=== PATIENT | female | born 1970 | race Caucasian/White ===

== ENCOUNTER 2022-07-30 14:51 | Outpatient (CLI) | payer OTHER, SELFPAY ==
--- NOTE | ~2022-07-30 | XR_ITS ---
EXAMINATION: XR cervical spine 4-5V DATE: 07/30/2022 15:24 INDICATION: Neck pain. TECHNIQUE: 5 views of cervical spine were obtained. COMPARISON: CT cervical spine 09/09/2009 FINDINGS: There is 5 degrees dextrocurvature of cervicothoracic spine. There is 2 mm retrolisthesis o f C5 on C6. Vertebral body heights are normal. There is mildly decreased disc height at C5-C6 and C6- C7. At C6-C7, there is severe right uncovertebral joint osteoarthritis. The facet joints are unremark able. There is mild central canal stenosis at C5-C6. No prevertebral soft tissue swelling. IMPRESSION: 1. Mild cervical spondylosis. Reviewed, dictated and finalized at location A. ITAL WELLNESS COORDINATOR
== END 2022-07-30 14:52 | disposition home or self-care (01) ==
PROVIDERS: PCP Family Medicine; Visit Provider Family Medicine
DX: M47.892 Other spondylosis, cervical region (principal)
CPT/HCPCS: 72050

== ENCOUNTER 2022-09-20 08:00 | Outpatient (RCR) | payer OTHER, SELFPAY ==
--- NOTE | 2022-08-23 09:15 | PTOPEVAL1 ---
Assessment and note entered by Tyrel Moon, PT Evaluation Information Assessment Status Evaluation Diagnosis Cervicalgia Onset beginning of May 2022 Subjective Information Victorina report she got a promotion last year and since then has been spending 10 hour days at a desk looking at her computer screen. She started with pain just in the back of her neck in the suboccipital region and has started going down to the L upper trap and into the arm. Pain is worst at the end of the day, driving, sleeping. She reports she does just get stuck working and will stay in the same position for long extended periods of time. Patient does use a heating pad and hot showers to help with the pain. Has attended 2 sessions of chiropractic treatment. Unable to take NSAID secondary to side effects from her bariatric surgery. Reported Pain Level Pain Score 0: Self Report Additional Pain Score Comments She has not been to work yet this morning Assessment PT Clinical Summary Victorina is a 52 year old female coming into the clinic with neck pain worst on the L side. She has reduced rotation and side bending to the L side along with a positive Spurling test in the L front quadrant. Patient needs to work on posture instructed to set an alarm on her phone to go off no later than every 45 minutes to improve poor work posture. Patient will benefit from skilled physical therapy to work on cervical range of motion and strength along with scapular strengthening and modalities and manual therapy for pain control and stretching respectively. Plan of Care Interventions Electrical Stimulation,Gait Training,Hot Pack/Cold Pack,Manual Therapy,Mechanical Traction,Paraffin Bath,Patient/Caregiver Education,Therapeutic Activities,Therapeutic Exercise,Ultrasound Other Interventions taping PT Services Indicated Yes Treatment Frequency and 1-2x/wk for 4 weeks Duration These treatments will address the objective and functional deficits as defined above. The patient will be advanced safely and appropriately in order for the patient to progress towards his/her prior level of function. Additional exercises will be introduced and as well as a comprehensive home exercise program upon discharge, if needed, ?to ensure carryover of functional gains achieved in the clinic. This treatment plan has been reviewed and agreement upon by the patient.
--- NOTE | 2022-09-14 11:27 | PCPTNOTE ---
Patient called & cancelled scheduled appointment this date due to not feeling well.
--- NOTE | 2022-09-20 17:20 | PTOPREEVAL ---
Assessment and note entered by Tyrel Moon, PT Evaluation Information Assessment Status Re-evaluation Diagnosis Cervicalgia Onset May 2022 Subjective Information Patient report she feels better for awhile after leaving therapy even last week not feeling pain for multiple days, but then her neck with start tightening up. States she is faithful with her HEP and does get up and move instead of staying all session sitting at her desk. Still going down her L shoulder. Clinical Summary Victorina is a 52 year old female coming into the clinic with neck pain radiating down the L arm. Patient has reported changing her sitting habits at work to improve posture. Has improvement of five degrees side bending and 10 degrees of rotation both to the L side. Patient still has the same pain and radiating symptoms. Recommend trying to get an injection to improve the L upper trap. Patient reports she got one for her knee and has done wonders. Continue therapy to work on muscle tightness until injections. These treatments will address the objective and functional deficits as defined above. The patient will be advanced safely and appropriately in order for the patient to progress towards his/her prior level of function. Additional exercises will be introduced and as well as a comprehensive home exercise program upon discharge, if needed, ?to ensure carryover of functional gains achieved in the clinic. This treatment plan has been reviewed and agreement upon by the patient.
--- NOTE | 2022-10-22 09:42 | PCPTNOTE ---
Admitting Provider: Attending Provider: Alex Langford MD Patient:Victorina Matson Date of :1970 Patient has not returned for any further treatments since 09/20/2022, therefore she will be discharged at this time. Patient?s initial visit was on 08/23/2022 08:00 and she had a total of ___6 visits with 1 cancelation The goals have been partially met. Thank you for referring this patient to [facility]. Please review, sign, date and return this discharge summary HE. I have been updated about the patient's current status and I agree with discharge from the above service at this time. Referring Physician Date
== END 2022-11-01 14:02 | disposition home or self-care (01) ==
LOC: ANHPT 08:00
PROVIDERS: PCP Family Medicine; Visit Provider Family Medicine
DX: M54.2 Cervicalgia (principal)
CPT/HCPCS: 97014; 97110; 97140; 97161; 97530; G0283

== ENCOUNTER 2022-11-09 08:01 | Outpatient (CLI) | payer OTHER, SELFPAY ==
--- NOTE | ~2022-11-09 | MR_ITS ---
MRI of the cervical spine Clinical History: Radiculopathy Technique: Axial T2-weighted and gradient images, and sagittal T1-weighted, T2-weighted, and STIR lawrence ges were acquired. Findings: There is minimal reversal of the normal cervical lordosis. No fracture or subluxation. Ther e are reactive marrow signal changes about the C5-C6 disc space due to mild underlying degenerative d isc disease. At C2-C3, there is no disc bulge or herniation. No spinal canal stenosis, cord compression, or neural foraminal narrowing. At C3-C4, there is no significant disc bulge or herniation. No spinal canal stenosis, cord compressio n, or neural foraminal narrowing. At C4-C5, there is no significant disc bulge or herniation. No spinal canal stenosis, cord compressio n, or neural foraminal narrowing. At C5-C6, there is minimal disc osteophyte complex. No garry spinal canal stenosis or cord compressio n. There is left neural foraminal narrowing. Right neural foramen preserved. At C6-C7, there is minimal disc osteophyte complex. No spinal canal stenosis, cord compression, or ne ural foraminal narrowing. No abnormal signal seen in the spinal cord. Paravertebral soft tissues are unremarkable. Impression: Mild left neural foraminal narrowing at C5-C6, related to minimal disc osteophyte complex. Additional minimal degenerative change at C6-C7. Reviewed, dictated and finalized at [facility]. Impression: Mild left neural foraminal narrowing at C5-C6, related to minimal disc osteophy te complex. Additional minimal degenerative change at C6-C7.
== END 2022-11-09 08:02 | disposition home or self-care (01) ==
LOC: ANHIMG 08:09
PROVIDERS: PCP Family Medicine
DX: M54.12 Radiculopathy, cervical region (principal)
CPT/HCPCS: 72141

== ENCOUNTER 2023-11-07 05:51 | Day surgery (SDC) | payer OTHER, SELFPAY ==
[2023-10-03 11:44] VITALS: BMI 30.7
[2023-11-07 06:26] VITALS: BP 129/90; PULSE 62; RESP 16; TEMP 36.5; O2SAT 100; BMI 29.7
[2023-11-07] MEDS: LACTATED RINGERS 1,000 ML 150 ML IV CONT (07:05)
--- NOTE | 2023-11-07 07:06 | PM.HPGS ---
History of Present Illness History of Present Illness Consent: Risks, benefits, and alternatives have been discussed and questions answered. Patient agrees to proceed with procedure. Chief complaint: Neoplasm Screening of Colon Narrative: Victorina Matson is a 53 year old female presents for screening colonoscopy. Patient reports that her current weight appetite and bowel movements are normal. Patient denies abdominal pain. She has had no bleeding. Family history is noncontributory. Review of Systems Review of Systems: All systems reviewed & are unremarkable except as noted in HPI and below PMFSH Past Medical History Medical History (Updated 05/02/23 @ 08:41 by Alex Langford MD) Acute neck pain (~07/16/22) X-ray of the cervical spine on 07/30/2022 with mild degenerative disc and arthritis worse at the right at C6-C7. Left cervical radiculitis. Acute non-recurrent maxillary sinusitis Adult BMI 36.0-36.9 kg/sq m Anemia Anxiety BMI 30.0-30.9,adult BMI 34.0-34.9,adult BMI 35.0-35.9,adult Breast cancer screening Cholecystectomy planned Chronic headaches Chronic nasal congestion Chronic nonallergic rhinitis Colon cancer screening COVID-19 (07/11/20) Depression Essential hypertension (~02/28/22) GERD (gastroesophageal reflux disease) History of narcotic addiction Insomnia Iron deficiency anemia following bariatric surgery hemoglobin 9.9, MCV 73, iron 18 with 4% saturation and ferritin of 5 on 10/26/2021. Obesity (BMI 30-39.9) Ovarian cyst Radiculitis of left cervical region MRI C-spine 11/09/2022 with left neuroforaminal narrowing at C5-C6 from osteophyte complex. Tobacco abuse patient quit smoking May,. Vitamin B12 deficiency (dietary) anemia Surgical History Surgical History History of gastric bypass (~2003) Family History Family History Mother Hypertension Heart disease Father Heart disease Hypertension Sibling Hypertension Social History Social History (Updated 08/01/22 @ 11:11 by Michelle Cash MA) Years smoked: 20 Smoking status: Former smoker Tobacco type: cigarettes Second hand tobacco smoke exposure: Yes Smoking end date: 05/22/22 Alcohol intake: current Drinks per week: 6 Substance use: never Substance use type: does not use Lack of Transportation: No Lack of Food: Never True Current Housing: I Have Housing Concerned About Future Housing: No Difficulty Paying Gas/Electric Bills: No Difficulty Paying for Meds: No Currently Unemployed: No Education: High School Diploma/GED Difficulty w/ Childcare or Family Care: No Living arrangements: with family Spiritual care concerns: No Meds Home Medications and Allergies Home Medications Medication Instructions Recorded Confirmed Type fluticasone propionate 50 1 spray intranasal BID #16 grams 04/25/21 11/07/23 Rx mcg/actuation nasal spray,suspension (Flonase Allergy Relief) cyanocobalamin (vitamin B-12) 1,000 mcg PO DAILY #90 tabs 08/07/22 11/07/23 Rx 1,000 mcg tablet ferrous sulfate 325 mg (65 mg 325 mg PO DAILY 10/17/22 11/07/23 History iron) tablet,delayed release bupropion HCl 300 mg 24 hr tablet, 300 mg PO QAM #30 tabs 04/10/23 11/07/23 Rx extended release (Wellbutrin XL) quetiapine 200 mg tablet (Seroquel) 200 mg PO QHS #30 tabs 07/23/23 11/07/23 Rx gabapentin 100 mg capsule 100 mg PO TID #90 caps 09/30/23 11/07/23 Rx tramadol 50 mg tablet 50 mg PO Q6H PRN pain #60 tabs 10/17/23 11/07/23 Rx Allergies Allergy/AdvReac Type Severity Reaction Status Date / Time meperidine Allergy Intermediate Hives Verified 11/07/23 06:17 Vital Signs Vital Signs - 24 hr 11/07/23 06:26 Temperature 97.7 F Pulse Rate 62 Respiratory Rate 16 Blood Pressure 129/90 Pulse Oximetry 100 Oxygen Delivery Room Air Exam Narrative:
--- NOTE | 2023-11-07 07:26 | WPDANESEPPF ---
Anes - Initial Pre Proc Eval Procedure: Operation Date: 11/07/23 07:30 Proposed Procedures p Screening Colonoscopy - Aravind Gamboa MD Date/Time: 11/07/23 07:26 Surgeon: Aravind Gamboa MD Pre Op Diagnosis: Neoplasm Screening of Colon Patient Data Age: 53 Gender: F Height: 1.6 m Weight: 76.1 kg Last Vital Signs Temp 36.5 C 11/07/23 06:26 Pulse 62 11/07/23 06:26 Resp 16 11/07/23 06:26 BP 129/90 11/07/23 06:26 Pulse Ox 100 11/07/23 06:26 O2 Del Method Room Air 11/07/23 06:26 Allergies Allergy/AdvReac Type Severity Reaction Status Date / Time meperidine Allergy Intermediate Hives Verified 11/07/23 06:17 Home Medications Medication Instructions Recorded Confirmed Type fluticasone propionate 50 1 spray intranasal BID #16 grams 04/25/21 11/07/23 Rx mcg/actuation nasal spray,suspension (Flonase Allergy Relief) cyanocobalamin (vitamin B-12) 1,000 mcg PO DAILY #90 tabs 08/07/22 11/07/23 Rx 1,000 mcg tablet ferrous sulfate 325 mg (65 mg 325 mg PO DAILY 10/17/22 11/07/23 History iron) tablet,delayed release bupropion HCl 300 mg 24 hr tablet, 300 mg PO QAM #30 tabs 04/10/23 11/07/23 Rx extended release (Wellbutrin XL) quetiapine 200 mg tablet (Seroquel) 200 mg PO QHS #30 tabs 07/23/23 11/07/23 Rx gabapentin 100 mg capsule 100 mg PO TID #90 caps 09/30/23 11/07/23 Rx tramadol 50 mg tablet 50 mg PO Q6H PRN pain #60 tabs 10/17/23 11/07/23 Rx Patient hx anesthesia problems: none Family hx anesthesia problems: none Results Review: All pre-operative results and documents have been reviewed as part of the pre-operative evaluation. PENDING SALE TO [facility] Past Medical History Medical History Acute neck pain (~07/16/22) X-ray of the cervical spine on 07/30/2022 with mild degenerative disc and arthritis worse at the right at C6-C7. Left cervical radiculitis. Acute non-recurrent maxillary sinusitis Adult BMI 36.0-36.9 kg/sq m Anemia Anxiety BMI 30.0-30.9,adult BMI 34.0-34.9,adult BMI 35.0-35.9,adult Breast cancer screening Cholecystectomy planned Chronic headaches Chronic nasal congestion Chronic nonallergic rhinitis Colon cancer screening COVID-19 (07/11/20) Depression Essential hypertension (~02/28/22) GERD (gastroesophageal reflux disease) History of narcotic addiction Insomnia Iron deficiency anemia following bariatric surgery hemoglobin 9.9, MCV 73, iron 18 with 4% saturation and ferritin of 5 on 10/26/2021. Obesity (BMI 30-39.9) Ovarian cyst Radiculitis of left cervical region MRI C-spine 11/09/2022 with left neuroforaminal narrowing at C5-C6 from osteophyte complex. Tobacco abuse patient quit smoking May,. Vitamin B12 deficiency (dietary) anemia Surgical History Surgical History History of gastric bypass (~2003) Family History Family History Mother Hypertension Heart disease Father Heart disease Hypertension Sibling Hypertension Social History Social History Years smoked: 20 Smoking status: Former smoker Tobacco type: cigarettes Second hand tobacco smoke exposure: Yes Smoking end date: 05/22/22 Alcohol intake: current Drinks per week: 6 Substance use: never Substance use type: does not use Lack of Transportation: No Lack of Food: Never True Current Housing: I Have Housing Concerned About Future Housing: No Difficulty Paying Gas/Electric Bills: No Difficulty Paying for Meds: No Currently Unemployed: No Education: High School Diploma/GED Difficulty w/ Childcare or Family Care: No Living arrangements: with family Spiritual care concerns: No Anes - Eval Final PreProcedure Day of Procedure 11/07/23 07:26 Patient weight: overweight Heart: regul
[2023-11-07 07:51] VITALS: BP 102/56; PULSE 64; RESP 14; O2SAT 100
[2023-11-07 08:01] VITALS: BP 108/60; PULSE 62; RESP 16; O2SAT 100
[2023-11-07 08:11] VITALS: BP 121/74; PULSE 57; RESP 16; O2SAT 100
--- NOTE | 2023-11-07 08:30 | WPDANESPN ---
Anes - Prog Note Post-Op Date/Time: 11/07/23 08:30 Cardiovascular status: normal Respiratory status: normal Airway patency: baseline Mental status: baseline Post-Op hydration status: normal Vital Signs: Last Vital Signs Temp 36.5 C 11/07/23 06:26 Pulse 57 L 11/07/23 08:11 Resp 16 11/07/23 08:11 BP 121/74 11/07/23 08:11 Pulse Ox 100 11/07/23 08:11 O2 Del Method Room Air 11/07/23 08:11 Pain Score (VAS): 0 I/O: Intake & Output 11/06/23 11/07/23 11/07/23 23:59 07:59 15:59 Intake Total 400 100 Balance 400 100 Patient Feedback: Patient satisfied with anesthetic care.
== END 2023-11-07 08:15 | disposition home or self-care (01) ==
PROVIDERS: PCP Family Medicine; Visit Provider Internal Medicine Gastroenterology
PROC: 0DJD8ZZ Inspection of Lower Intestinal Tract, Via Natural or Artificial Opening Endoscopic (ICD-10-PCS; CPT 45378; principal; 2023-11-07 07:30)
DX: Z12.11 Encounter for screening for malignant neoplasm of colon (principal); K64.8 Other hemorrhoids
CPT/HCPCS: 45378

== ENCOUNTER → 2023-12-18 14:14 | Outpatient (REF) | payer OTHER, SELFPAY | LOC: ANHLAB 14:14 | PROVIDERS: PCP Family Medicine; Visit Provider Plastic Surgery | DX: L72.0 Epidermal cyst (principal) | CPT/HCPCS: 88305 ==

== ENCOUNTER 2024-01-30 11:00 | Outpatient (CLI) | payer OTHER, SELFPAY ==
[2024-01-30 11:21] LABS: Basophils Absolute Auto 0.1 K/mm3 (0.0-0.1); Basophils Percent Auto 1.8 % (0.2-1.2); Eosinophils Absolute Auto 0.1 K/mm3 (0-0.3); Eosinophils Percent Auto 1.3 % (0-4.4); Hemoglobin 8.9 g/dL (12.0-15.0); Lymphocytes Absolute Auto 1.35 K/mm3 (0.9-3.2); Lymphocytes Percent Auto 29.5 % (18.3-44.2); Mean Corpuscular HGB Conc 29.7 g/dl (32-36); Mean Corpuscular Hemoglobin 20.2 pg (26-34); Mean Corpuscular Volume 68.2 fl (80-100); Mean Platelet Volume 8.7 fl (7.4-10.4); Monocytes Absolute Auto 0.5 K/mm3 (0.1-0.6); Monocytes Percent Auto 10.5 % (2.6-8.5); Neutrophils Absolute Auto 2.6 K/mm3 (1.3-6.7); Neutrophils Percent Auto 56.9 % (45.5-73.1); Platelet Count Result 311 k/mm3 (150-375); Red Cell Distribution Width 20.4 % (11.5-14.5); White Blood Count 4.6 K/mm3 (4.5-10.0)
[2024-01-30 11:29] LABS: Anisocytosis 1+; Hypochromasia 2+; Microcytosis 1+ (NORMAL); Platelet Estimate Adequate (Adequate); Schistocytes None Seen
[2024-01-30 13:49] LABS: Iron 20 ug/dL (37-170)
[2024-01-30 13:58] LABS: Alanine Aminotransferase 32 U/L (6-35); Albumin Level 4.6 g/dL (3.5-5.1); Alkaline Phosphatase 75 U/L (38-126); Anion Gap 10 mmol/L (4-12); Aspartate Amino Transferase 39 U/L (14-36); Bilirubin,Total 0.4 mg/dL (0.2-1.3); Blood Urea Nitrogen 13 mg/dL (7-17); Calcium 9.4 mg/dL (8.4-10.2); Carbon Dioxide 28 mmol/L (22-30); Chloride 100 mmol/L (98-107); Estimated Glomerular Filt Rate > 60; Glucose 77 mg/dL (65-110); Lactate Dehydrogenase 194 U/L (120-246); Potassium 4.4 mmol/L (3.4-5.0); Sodium 138 mmol/L (137-145)
[2024-01-30 14:06] LABS: Percent Iron Saturation 4 % (20-50)
[2024-01-30 14:25] LABS: Ferritin 4.67 ng/mL (11.1-264)
[2024-01-30 15:03] LABS: Folic Acid > 20.0 ng/mL (2.76->20); Vitamin B12 > 1000.0 pg/mL (239-931)
[2024-02-04 06:24] LABS: Methylmalonic Acid 137 nmol/L (55-335)
[2024-02-05 09:09] LABS: Soluble Transferrin Receptor 4.28 mg/L (0.76-1.76)
== END 2024-01-30 11:01 | disposition home or self-care (01) ==
LOC: ANHLAB 11:01
PROVIDERS: PCP Family Medicine; Visit Provider Nurse Practitioner Family
DX: D50.9 Iron deficiency anemia, unspecified (principal)
CPT/HCPCS: 36415; 80053; 82607; 82728; 82746; 83540; 83550; 83615; 83921; 84238; 85025

== ENCOUNTER 2024-05-29 08:14 | Outpatient (CLI) | payer OTHER, SELFPAY ==
--- NOTE | ~2024-05-29 | MM_ITS ---
EXAMINATION: MM screening maria m BI w coco HISTORY: Screening TECHNIQUE: Craniocaudal and mediolateral oblique 3-D tomosynthesis images were obtained and synthetic 2-D images were generated. CAD analysis was submitted and interpreted. COMPARISON: 04/22/2015 BREAST PARENCHYMAL COMPOSITION: Not dense: There are scattered areas of fibroglandular density. FINDINGS: There is no evidence of suspicious mass, calcification, or architectural distortion to sugg est malignancy in either breast. There has been no suspicious interval change. IMPRESSION: 1. No mammographic evidence of malignancy. 2. Recommend routine screening mammography in one year. BI-RADS Category 1: Negative Reviewed, dictated and finalized at location B. TECHNICAL DIRECTOR
== END 2024-05-29 08:15 | disposition home or self-care (01) ==
LOC: ANHIMG 08:16
PROVIDERS: PCP Family Medicine; Visit Provider Internal Medicine Hematology & Oncology
DX: Z12.31 Encounter for screening mammogram for malignant neoplasm of breast (principal)
CPT/HCPCS: 77063; 77067

== ENCOUNTER 2024-08-24 16:46 | Emergency (ER) | payer OTHER, SELFPAY ==
--- NOTE | ~2024-08-24 | XR_ITS ---
EXAMINATION: XR chest 2V Exam Date/Time: 08/24/2024 17:38 [employer] ATTENDANT HISTORY: sob/cough/chest discomfort, hx recent pneumonia Comparison: 09/09/2009. RESULT: Lines, tubes, and devices: Cholecystectomy clips. Lungs and pleura: Clear. Calcified left upper lung granuloma. Cardiomediastinal silhouette: Stable. Other: No acute osseous or upper abdominal finding. IMPRESSION: No acute cardiopulmonary process. Reviewed, dictated and finalized at location K. [facility] ATTENDANT
[2024-08-24 17:18] VITALS: BP 139/91; PULSE 85; RESP 16; TEMP 36.8; O2SAT 99
--- NOTE | 2024-08-24 17:19 | ED_ITS ---
HPI - URI/Sore Throat General Chief Complaint: Upper Respiratory Infection Stated Complaint: Trouble Breathing/Chest/Back Pain Time Seen by Provider: 08/24/24 17:25 Source: patient Mode of arrival: ambulatory Limitations: no limitations History of Present Illness HPI Narrative: Victorina is a 54-year-old female patient presenting to the clinic today with complaints of shortness of breath, chest discomfort, and back pain. She reports some started yesterday. Recently had pneumonia back on August 10 and was hospitalized for 4 days. States yesterday she developed some chest discomfort and back pain with cough. Pain is worse with inspiration. Feels as though there is a right crispy sensation when she is taking a breath. She denies any fevers, chills, body aches. States that her is at home sick with influenza A. MD elicited complaint: sore throat and nasal congestion Related Data Home Medications ?Medication ?Instructions ?Recorded ?Confirmed ?Last Taken ?Type ferrous sulfate 325 mg (65 mg 325 mg PO DAILY 10/17/22 06/25/24 11/01/23 History iron) tablet,delayed release Allergies Allergy/AdvReac Type Severity Reaction Status Date / Time meperidine Allergy Intermediate Hives Verified 03/05/24 12:48 Review of Systems 2 Review of Systems: Pertinent positives per HPI. Patient denies any fever, chills, rash, headache, visual changes, dizziness, palpitations, nausea, vomiting, diarrhea, constipation, abdominal pain, or any urinary issues. [facility] Past Medical History Medical History Fever blister Elevated fasting glucose (06/26/24) glucose 103 on 06/26/2024. Elevated liver enzymes AST 39 with ALT 32 on 01/30/2024. AST 25, ALT 20 on 06/26/2024. BMI 33.0-33.9,adult Sebaceous cyst 2 small sebaceous cyst midline upper back BMI 29.0-29.9,adult Overweight (BMI 25.0-29.9) BMI 30.0-30.9,adult Radiculitis of left cervical region MRI C-spine 11/09/2022 with left neuroforaminal narrowing at C5-C6 from osteophyte complex. BMI 35.0-35.9,adult Acute neck pain (~07/16/22) X-ray of the cervical spine on 07/30/2022 with mild degenerative disc and arthritis worse at the right at C6-C7. Left cervical radiculitis. Adult BMI 36.0-36.9 kg/sq m Obesity (BMI 30-39.9) Essential hypertension (~02/28/22) Vitamin B12 deficiency (dietary) anemia level normal at greater than 2000 with folic acid 20 and hemoglobin low at 9.5 on 10/03/2023. Greater than 1000 with hemoglobin 8.9 and folic acid greater than 20 on 01/30/2024. Iron deficiency anemia following bariatric surgery hemoglobin 9.9, MCV 73, iron 18 with 4% saturation and ferritin of 5 on 10/26/2021.Iron 18, 4% saturation, ferritin 6 with hemoglobin 9.5 on . Hemoglobin 9.5, iron 18 with 4% saturation and ferritin 6 on 10/03/2023. Hemoglobin 8.9, iron 20, 4% saturation, ferritin 4.67 on 01/30/2024. Iron 49 with 12% saturation and ferritin 13 with hemoglobin 13.3 on 06/26/2024. Anemia Tobacco abuse patient quit smoking May,. Colon cancer screening normal colonoscopy 11/07/2023 with recheck in 10 years. Breast cancer screening Mammogram normal 05/29/2024. Chronic nasal congestion BMI 34.0-34.9,adult COVID-19 (07/11/20) History of narcotic addiction Chronic nonallergic rhinitis Insomnia Acute non-recurrent maxillary sinusitis Ovarian cyst Cholecystectomy planned GERD (gastroesophageal reflux disease) Anxiety Chronic headaches Depression Surgical History Surgical History History of gastric bypass (~2003) Family History Family History Mother Hypertension Heart disease Lung cancer Father Heart disease Hypertension Alcoholism Sibling Hypertension Social History Social History Smoking packs per day: 0.5 Smoking cigarettes per day: 10.0 Years smoked: 35 Smoking pack-years: 17.50 Smoking status: Former smoker Tobacco type: cigarettes Second hand tobacco smoke exposure: Yes Smoking end date: 05/22/22 Alcohol intake: current Drinks per week: 6 Substance use: never Substance use type: does not use Lack of Transportation: No Lack of Food: Never True Current Housing: I Have Housing Concerned About Future Housing: No Difficulty Paying Gas/Electric Bills: No Difficulty Paying for Meds: No Currently Unemployed: No Education: High School Diploma/GED Difficulty w/ Childcare or Family Care: No Living arrangements: with family Spiritual care concerns: No Comments At the time of my signature, I reviewed and agree with the nursing past medical, surgical, social, and family history. There is no relevant family history pertinent to the patient complaint. Exam Narrative: General: Well-developed, well nourished, in no apparent distress Head: Normocephalic, atraumatic Eyes: Pupils equally round and reactive to light bilaterally, EOM intact, sclera and conjunctive clear, no discharge, lids normal Ears: TMs intact and congested r, ear canals clear, no drainage, grossly hearing normal. Nose: Nares patent, clear nasal discharge, no inflammation, no sinus tenderness. Mouth: Oral pharynx without lesions or masses, good dentition, MMM. Neck: Supple, trachea midline, no enlargement of anterior or posterior cervical nodes, no thyroid masses or goiter palpable. Cardio: Regular rate and rhythm, s1 and s2 normal, no murmur appreciated. Resp: Lung sounds diminished in the bases, no rhonchi, rales, wheezing or rubs Course Course Emergency Course: Portions of this record may have been created with voice recognition software. Level of Care: Express Care Visit Vital Signs Vital signs: Vital Signs Temperature 36.8 C 08/24/24 17:18 Pulse Rate 85 08/24/24 17:18 Respiratory Rate 16 08/24/24 17:18 Blood Pressure 139/91 H 08/24/24 17:18 Pulse Oximetry 99 08/24/24 17:18 Temperature 36.8 C 08/24/24 17:18 Pulse Rate 85 08/24/24 17:18 Respiratory Rate 16 08/24/24 17:18 Blood Pressure 139/91 H 08/24/24 17:18 Pulse Oximetry 99 08/24/24 17:18 Vital signs reviewed MDM - URI/Sore Throat MDM Narrative Medical decision making narrative: At the time of visit patient is resting comfortably on the exam table. Patient appears to be nontoxic. EKG: EKG shows normal sinus rhythm with a heart rate of 80 beats per minute without ST elevation, depression, or T-wave inversion. Labs: COVID and influenza testing was negative. Diagnostics: Chest x-rays negative for any acute cardiopulmonary process. Wells criteria for PE 0.0?points Low risk group: 1.3% chance of PE in an ED population. Another study assigned scores <=4 as ?PE Unlikely? and had a 3% incidence of PE. Plan: I suspect patient has bronchitis/pleuritic chest pain. Prescription for prednisone, doxycycline, and albuterol inhaler was sent to the pharmacy. Supportive measures were discussed with the patient and they voiced understanding discharge instructions and agrees to treatment plan. Return precautions reviewed Differential Diagnosis Differential diagnosis: Likely upper respiratory infection, otitis media, sinusitis, viral infection, bronchitis, influenza, pharyngitis and other (Pleurisy, PE, pneumonia) Lab Data Labs: Lab Results 08/24/24 08/24/24 Range/Units 17:38 18:07 POC Influenza A Ag Negative (Negative) POC Influenza B Ag Negative (Negative) POC SARS CoV-2 Ag Negative (Negative) Imaging Data Radiologist's impression: ITS Impressions Chest X-Ray 08/24/24 18:02 IMPRESSION: No acute cardiopulmonary process. ECG Data EKG #1: Attestation: I personally reviewed and interpreted this ECG as follows: ECG completion date: 08/24/24 ECG completion time: 18:06 Interpretation: EKG shows normal sinus rhythm with heart rate of 80 beats per minute without ST elevation, depression, or T-wave inversion. TN interval is 147 milliseconds, QRS duration is 108 milliseconds, QT-QTC is 363-399 milliseconds, P-R-T axis is 24 0 25 Discharge Plan Discharge Clinical Impression: Chest pain, pleuritic, Bronchitis Patient Disposition: Home, Self-Care Condition: Stable Instructions: Antibiotic Form, Pleurisy (ED), Acute Bronchitis (ED) Additional Instructions: Influenza and COVID testing was negative in the clinic today. EKG shows normal sinus rhythm with heart rate of 80 beats per minute. Chest x-rays negative for any acute cardiopulmonary process Will treat you as pleuritic chest pain/bronchitis. Take prescription medications only as prescribed-prednisone, azithromycin, and albuterol inhaler Increase fluids and stay well hydrated Tylenol/motrin for pain/fever Flonase and OTC antihistamines as directed Vicks vapor rub to open sinuses Sinus rinses for congestion Cepacol spray, cough drops, throat lozenges, warm tea with honey/lemon, gargle salt water to soothe throat BRAT diet for diarrhea Clear liquids x 24 hours then advance as tolerated for nausea/vomiting Go to the ED if you develop a worsening in your condition- high fever not controlled by Tylenol or Motrin, dehydration, weakness, lethargy, shortness of breath, or chest pain. Follow up with your PCP in 3-5 days if symptoms persist. Patient Language: Macanese Prescriptions: New prednisone 20 mg tablet 40 mg PO DAILY 5 Days Qty: 10 0RF doxycycline monohydrate 100 mg capsule 100 mg PO BID 7 Days Qty: 14 0RF albuterol sulfate 90 mcg/actuation HFA aerosol inhaler 2 puff inhalation Q4-6H PRN (Reason: shortness of breath or wheezing) 30 Days Qty: 8.5 0RF No Action ferrous sulfate 325 mg (65 mg iron) tablet,delayed release (DR/EC) 325 mg PO DAILY bupropion HCl [Wellbutrin XL] 300 mg tablet extended release 24 hr 300 mg PO QAM Qty: 30 11RF fluticasone propionate [Flonase Allergy Relief] 50 mcg/actuation spray,suspension 1 spray NASAL BID Qty: 16 11RF Rx Instructions: administer into each nostril gabapentin 100 mg capsule 100 mg PO TID Qty: 90 11RF tramadol 50 mg tablet 50 mg PO Q6H PRN (Reason: pain) Qty: 60 5RF Rx Instructions: take with acetaminophen 325 mg q.i.d. p.r.n. severe pain only. quetiapine [Seroquel] 50 mg tablet 150 mg PO QHS Qty: 90 11RF cyanocobalamin (vitamin B-12) 1,000 mcg tablet 1,000 mcg PO DAILY Qty: 90 3RF valacyclovir 1 gram tablet 1,000 mg PO TID Qty: 21 0RF Follow-up/Referrals: Alex Langford MD [Primary Care Provider] - Time of Disposition: 18:18 Quality NIHSS Nursing Documentation ED NIHSS nursing documentation: reviewed/agree
[2024-08-24 17:40] LABS: EDINFLUASCREEN Negative (Negative); EDINFLUBSCREEN Negative (Negative)
--- NOTE | 2024-08-24 18:04 | ECG_ITS ---
Test Date: 2024-08-24 18:06:42 Measurements Intervals [place] Rate: 80 P: 24 VA: 147 QRS: 0 QRSD: 108 T: 25 QT: 363 QTc: 420 Interpretive Statements SINUS RHYTHM BASELINE ARTIFACT- I, II, III, AVR, AVL, AVF NORMAL ECG No previous ECG available for comparison Electronically Signed On 08-24-2024 19:18:03 AUTO SERVICE WRITER by Rush Martinez D.O.
[2024-08-24 18:09] LABS: EDCOVIDSCREEN Negative (Negative)
== END 2024-08-24 18:34 | disposition home or self-care (01) ==
PROVIDERS: Emergency Provider Nurse Practitioner Family; PCP Family Medicine
DX: R07.81 Pleurodynia (principal); J40 Bronchitis, not specified as acute or chronic; Z20.822 Contact with and (suspected) exposure to COVID-19; Z87.891 Personal history of nicotine dependence; I10 Essential (primary) hypertension; K21.9 Gastro-esophageal reflux disease without esophagitis; E66.9 Obesity, unspecified; Z68.31 Body mass index [BMI] 31.0-31.9, adult; D51.9 Vitamin B12 deficiency anemia, unspecified; D50.9 Iron deficiency anemia, unspecified; F41.9 Anxiety disorder, unspecified; F32.A Depression, unspecified
CPT/HCPCS: 71046; 87426; 87804; 93005; 99213; G0463

== ENCOUNTER 2024-10-28 08:47 | Emergency (ER) | payer OTHER, SELFPAY ==
[2024-10-28 08:57] VITALS: BP 132/89; PULSE 88; RESP 16; TEMP 36.2; O2SAT 100
--- NOTE | 2024-10-28 09:39 | ED.WOUNDLAC ---
HPI - Wound/Laceration General Chief Complaint: Wound/Laceration Stated Complaint: Cut Leg Time Seen by Provider: 10/28/24 09:30 Source: patient and RN notes reviewed Mode of arrival: ambulatory Limitations: no limitations History of Present Illness HPI narrative: 54-year-old female presents to [facility] complaining of wound to her left lower leg for 1 week. Patient stated a week ago she was out camping when she tripped over a rest the fire pit and lacerated her left leg. She denies any other injuries, loss of consciousness, or hitting her head. She said she initially put hydrogen peroxide on the wound and so did. That she has been putting antibiotic ointment on it. Patient states her tetanus is not up-to-date. Patient says the wound has scabbed over now. She says she has some increased redness and swelling to her lower laceration. She denies any red streaking, fevers, chills, body aches, numbness, tingling, or any other concerns. Related Data Home Medications ?Medication ?Instructions ?Recorded ?Confirmed ?Last Taken ?Type ferrous sulfate 325 mg (65 mg 325 mg PO DAILY 10/17/22 06/25/24 11/01/23 History iron) tablet,delayed release Allergies Allergy/AdvReac Type Severity Reaction Status Date / Time meperidine Allergy Intermediate Hives Verified 10/28/24 09:02 Review of Systems Review of Systems: CONSTITUTIONAL: Denies fever, chills, or sweats. EYES: Denies visual changes, redness, or discharge. ENT: Denies rhinorrhea, congestion, sore throat, or otalgia. CARDIOVASCULAR: Denies chest pain, palpitations, or edema. RESPIRATORY: Denies cough or dyspnea. GASTROINTESTINAL: Denies abdominal pain, nausea, vomiting, or diarrhea. GENITOURINARY: Denies dysuria or hematuria. SKIN: Denies rash or itching. Positive for laceration MUSCULOSKELETAL: Denies back pain, joint pain, or myalgia. NEUROLOGIC: Denies headache, numbness, or weakness. PSYCHIATRIC: Denies anxiety or depression. All other systems reviewed are negative, except as documented in HPI. [facility] Past Medical History Medical History Fever blister Elevated fasting glucose (12/06/24) glucose 103 on 06/26/2024. Elevated liver enzymes AST 39 with ALT 32 on 01/30/2024. AST 25, ALT 20 on 06/26/2024. BMI 33.0-33.9,adult Sebaceous cyst 2 small sebaceous cyst midline upper back BMI 29.0-29.9,adult Overweight (BMI 25.0-29.9) BMI 30.0-30.9,adult Radiculitis of left cervical region MRI C-spine 11/09/2022 with left neuroforaminal narrowing at C5-C6 from osteophyte complex. BMI 35.0-35.9,adult Acute neck pain (~07/16/22) X-ray of the cervical spine on 07/30/2022 with mild degenerative disc and arthritis worse at the right at C6-C7. Left cervical radiculitis. Adult BMI 36.0-36.9 kg/sq m Obesity (BMI 30-39.9) Essential hypertension (~02/28/22) Vitamin B12 deficiency (dietary) anemia level normal at greater than 2000 with folic acid 20 and hemoglobin low at 9.5 on 10/03/2023. Greater than 1000 with hemoglobin 8.9 and folic acid greater than 20 on 01/30/2024. Iron deficiency anemia following bariatric surgery hemoglobin 9.9, MCV 73, iron 18 with 4% saturation and ferritin of 5 on 10/26/2021.Iron 18, 4% saturation, ferritin 6 with hemoglobin 9.5 on 10/03/2023. Hemoglobin 9.5, iron 18 with 4% saturation and ferritin 6 on 10/03/2023. Hemoglobin 8.9, iron 20, 4% saturation, ferritin 4.67 on 01/30/2024. Iron 49 with 12% saturation and ferritin 13 with hemoglobin 13.3 on 06/26/2024. Anemia Tobacco abuse patient quit smoking May,. Colon cancer screening normal colonoscopy 11/07/2023 with recheck in 10 years. Breast cancer screening Mammogram normal 05/29/2024. Chronic nasal congestion BMI 34.0-34.9,adult COVID-19 (07/11/20) History of narcotic addiction Chronic nonallergic rhinitis Insomnia Acute non-recurrent maxillary sinusitis Ovarian cyst Cholecystectomy planned GERD (gastroesophageal reflux disease) Anxiety Chronic headaches Depression Surgical History Surgical History History of gastric bypass (~2003) Family History Family History Mother Hypertension Heart disease Lung cancer Father Heart disease Hypertension Alcoholism Sibling Hypertension Social History Social History Smoking packs per day: 0.5 Smoking cigarettes per day: 10.0 Years smoked: 35 Smoking pack-years: 17.50 Smoking status: Former smoker Tobacco type: cigarettes Second hand tobacco smoke exposure: Yes Smoking end date: 05/22/22 Alcohol intake: current Drinks per week: 6 Substance use: never Substance use type: does not use Lack of Transportation: No Lack of Food: Never True Current Housing: I Have Housing Concerned About Future Housing: No Difficulty Paying Gas/Electric Bills: No Difficulty Paying for Meds: No Currently Unemployed: No Education: High School Diploma/GED Difficulty w/ Childcare or Family Care: No Living arrangements: with family Spiritual care concerns: No Comments At the time of my signature, I reviewed and agree with the nursing past medical, surgical, social, and family history. There is no relevant family history pertinent to the patient complaint. Exam Narrative: GENERAL: This is a well-nourished, well-developed adult, in no apparent distress. They are non ill-appearing, nontoxic appearing. HEAD: normocephalic, atraumatic. EYES: Sclera clear/white. Vision is grossly intact. EARS: External ears normal, auditory canals clear and without drainage, TMs normal without perforation. Hearing grossly intact. NOSE: External nose normal with no obvious nasal discharge, nares without redness, no rhinorrhea. THROAT: Mucous membranes moist, posterior pharynx clear. NECK: Neck supple, non-tender without lymphadenopathy, masses or thyromegaly. CARDIOVASCULAR: Regular rate and rhythm without murmurs, gallops, or rubs. RESPIRATORY: Clear to auscultation. Breath sounds equal bilaterally. No wheezes, rales, or rhonchi. GASTROINTESTINAL: Abdomen soft, non-tender, nondistended. Bowel sounds are active. No hepato-splenomegaly, or palpable masses. No guarding. SKIN: Left lower leg: There is a linear laceration measuring approximately 17 cm long to the anterior surface of the left lower leg, below the knee. There is surrounding erythema and swelling to the wound. The wound has scabbed over. The wound is tender to palpation. No exudate is present, no induration, no area of fluctuance. NEURO: awake, alert, and oriented to person, place and time. There were no obvious focal neurologic abnormalities. EXTREMITIES: No joint tenderness, effusion, or edema noted. BACK: Nontender without deformity. No CVA tenderness. Course Course Level of Care: Express Care Visit Vital Signs Vital signs: Vital Signs Temperature 97.1 F L 10/28/24 08:57 Pulse Rate 88 10/28/24 08:57 Respiratory Rate 16 10/28/24 08:57 Blood Pressure 132/89 10/28/24 08:57 Pulse Oximetry 100 10/28/24 08:57 Temperature 97.1 F L 10/28/24 08:57 Pulse Rate 88 10/28/24 08:57 Respiratory Rate 16 10/28/24 08:57 Blood Pressure 132/89 10/28/24 08:57 Pulse Oximetry 100 10/28/24 08:57 Reviewed MDM - Wound/Laceration MDM Narrative Medical decision making narrative: Patient's tetanus was updated today. Appears there is early signs of the patient developing cellulitis to her wound. The wound is already scabbed. Will treat empirically with cephalexin. Discussed physical exam findings. Advised supportive measures and signs/symptoms to go to the ER. Pt is appropriate for outpt treatment and f/u. Differential Diagnosis Differential diagnosis: Likely laceration, abscess and abrasion Critical Care Time Critical Care Time Critical Care Time: No Discharge Plan Discharge Clinical Impression: Cellulitis Patient Disposition: Home Condition: Stable Instructions: Antibiotic Form, Cellulitis (ED) Additional Instructions: Clean with soap and water only; Avoid using alcohol and peroxide. Elevate the affected area if possible Alternate Tylenol/ibuprofen for as needed for pain Acetaminophen(Tylenol) 650-1000mg every 4-6hours with max of 4000mg/day. Nonsteroidal anti-inflammatory agent (NSAIDs-ibuprofen): 400mg every 4-6hours with max 2400mg/day Take antibiotic until it's gone. Please schedule a follow up visit with your personal physician for further evaluation and treatment within 3-5days OR if your symptoms persist, change or worsen significantly before you can contact your personal physician then please, without delay, go to the emergency department for further evaluation. Patient Language: Kosovan Prescriptions: New cephalexin 500 mg capsule 500 mg PO Q6H 10 Days Qty: 40 0RF No Action albuterol sulfate 90 mcg/actuation HFA aerosol inhaler 2 puff inhalation Q4-6H PRN (Reason: shortness of breath or wheezing) 30 Days Qty: 8.5 0RF ferrous sulfate 325 mg (65 mg iron) tablet,delayed release (DR/EC) 325 mg PO DAILY bupropion HCl [Wellbutrin XL] 300 mg tablet extended release 24 hr 300 mg PO QAM Qty: 30 11RF fluticasone propionate [Flonase Allergy Relief] 50 mcg/actuation spray,suspension 1 spray NASAL BID Qty: 16 11RF Rx Instructions: administer into each nostril cyanocobalamin (vitamin B-12) 1,000 mcg tablet 1,000 mcg PO DAILY Qty: 90 3RF gabapentin 100 mg capsule 100 mg PO TID Qty: 90 11RF quetiapine [Seroquel] 200 mg tablet 200 mg PO QHS Qty: 30 11RF tramadol 50 mg tablet 50 mg PO Q6H PRN (Reason: pain) Qty: 60 5RF Rx Instructions: take with acetaminophen 325 mg q.i.d. p.r.n. severe pain only. Follow-up/Referrals: PHYSICIAN,DIRECTOR OUTPATIENT SERVICES [Primary Care Provider] - Time of Disposition: 09:39
[2024-10-28] MEDS: TETANUS,DIPHTHERIA,AC PERTUSSIS ADULT (0.5 ML) BOOSTRIX IM (09:44)
== END 2024-10-28 09:42 | disposition home or self-care (01) ==
DX: L03.116 Cellulitis of left lower limb (principal); S81.812A Laceration without foreign body, left lower leg, initial encounter; W45.8XXA Other foreign body or object entering through skin, initial encounter; Z23 Encounter for immunization; Z87.891 Personal history of nicotine dependence; I10 Essential (primary) hypertension; K21.9 Gastro-esophageal reflux disease without esophagitis; D51.3 Other dietary vitamin B12 deficiency anemia; F41.9 Anxiety disorder, unspecified; F32.A Depression, unspecified; Z86.16 Personal history of COVID-19; Z98.84 Bariatric surgery status
CPT/HCPCS: 90471; 90715; 99213; G0463